=== PATIENT | female | born 1970 | race Caucasian/White ===

== ENCOUNTER → 2016-12-01 | Outpatient (CLI) | payer BC ==
[~2016-12-01] MED LIST: DICL-201 PO; LISI5TAB PO; METR-163 PO; OYST500T47 PO; [UNRECOGNIZED DRUG - REMARK] PO
--- NOTE | 2016-12-01 12:50 | DIAGNOSTIC IMAGING REPORT ---
LEFT WRIST MIN 3 VIEWS ROUTINE CLINICAL HISTORY: PAIN IN LEFT HAND pain COMPARISON: None. DISCUSSION: The bones and joint spaces appear intact. There is no evidence of fracture, dislocation or bony disease. There is no evidence for soft tissue swelling. IMPRESSION: Negative study. The above report was generated using voice recognition software. It may contain grammatical, syntax or spelling errors. Electronically signed by: Jonnie Barragan M.D. 12/01/2016 12:48 PM Dictated Date/Time: 12/01/2016 12:48 PM
== END | disposition home or self-care (01) ==
LOC: C.RAD1850 12:30
PROVIDERS: ATTEND Nurse Practitioner
DX: M79.642 Pain in left hand (principal)